=== PATIENT | male | born 1950 | race Hispanic/Latino ===

== ENCOUNTER 2017-04-05 11:58 | Emergency (ER) | payer MEDICARE ==
[~2017-04-05 11:58] MED LIST: ASPI-1197 PO; ATOR10 PO; CLON0.1T PO
== END 2017-04-05 15:13 | disposition home or self-care (01) ==
LOC: EDH 11:58
DX: I88.9 Nonspecific lymphadenitis, unspecified (principal); I10 Essential (primary) hypertension; I25.10 Atherosclerotic heart disease of native coronary artery without angina pectoris; Z88.8 Allergy status to other drugs, medicaments and biological substances; Z79.82 Long term (current) use of aspirin; Z79.899 Other long term (current) drug therapy; Z98.890 Other specified postprocedural states; I72.0 Aneurysm of carotid artery
CPT/HCPCS: 93005; 93880

== ENCOUNTER 2017-05-15 20:30 | Emergency (ER) | payer MEDICARE ==
[2017-05-15] MEDS ORDERED: IBUPROFEN 400 MG TABLET ONE (21:11)
== END 2017-05-15 22:44 | disposition home or self-care (01) ==
LOC: EDH 20:30
DX: M79.605 Pain in left leg (principal); I25.10 Atherosclerotic heart disease of native coronary artery without angina pectoris; I10 Essential (primary) hypertension; Z88.8 Allergy status to other drugs, medicaments and biological substances; R22.42 Localized swelling, mass and lump, left lower limb
CPT/HCPCS: 73590; 93971

== ENCOUNTER → 2018-02-10 | Outpatient (CLI) | payer MEDICARE | END | disposition home or self-care (01) | LOC: RAH 09:58 | PROVIDERS: ATTEND Internal Medicine Critical Care Medicine | DX: R09.89 Other specified symptoms and signs involving the circulatory and respiratory systems (principal) | CPT/HCPCS: 93880 ==